=== PATIENT | male | born 1960 | race Caucasian/White ===

== ENCOUNTER → 2024-01-17 | Day surgery (SDC) | payer BC ==
[~2024-01-17] MED LIST: ACIPHEX20 MG PO; ASPIRIN81 MG PO; B-12 IM; BUPIVACAINE HCL 0.5% INJ 30 ML VIAL INJ ONE; CLARITIN10 MG PO; DEXAMETHASONE SOD PHOS INJ 4 MG/ML SDV ONE; DUPIXENT P300 MG/2 M SQ; EPINEPHRINE HCL 1:1000 1ML 1 MG/ML AMP ONE; FENTANYL CITRATE/PF 100MCG/2 ML INJ ONE; LEVOTHYROXINE75 MCG PO; LIDOCAINE 1% W/EPINEPHRINE 20 ML VIAL ONE; LIDOCAINE HCL 2% LOCAL INJ 5 ML SDV VIAL INJ ONE; LIPITOR20 MG PO; METOPROLOL SUCC50 MG PO; MIDAZOLAM HCL 2 MG/2 ML VIAL ONE; MONTELUKAST SOD10 MG PO; ONDANSETRON HCL INJ 2MG/ML 2ML 2 MG/ML VIAL ONE; PROBIOTIC PO; PROMETHAZINE HCL (IM) 25 MG/ML VIAL IM ONE; PROPOFOL IV EMULSION 10 MG/ML 20 ML VIAL ONE; ROPIVACAINE 0.5% 5 MG/ML 30 ML SDV ONE; SEVOFLURANE INHAL SOLN 250 ML PEN BTL ONE; VITAMIN D31 ML PO
[2024-01-17] MEDS: CEFAZOLIN SODIUM 2 GM ONE (09:11)
[2024-01-17] MEDS: LACTATED RINGER'S 1,000 ML ONE ×2 (09:12→12:10)
[2024-01-17 11:18] VITALS: TEMP 97.6
[2024-01-17] MEDS: MEPERIDINE HCL INJ 25 MG/ML VIAL ONE (11:35)
[2024-01-17] MEDS: KETOROLAC TROMETHAMINE 30 MG/ML VIAL ONE (11:49)
[2024-01-17] MEDS: METOCLOPRAMIDE HCL 10 MG/2ML VIAL ONE (12:05)
[2024-01-17] MEDS: PROMETHAZINE 25MG/ NS 50ML (IV) IV ONE (12:25)
[2024-01-17 12:45] VITALS: BP 144/77; PULSE 70; RESP 16; O2SAT 96
== END | disposition home or self-care (01) ==
LOC: OR 08:00
PROVIDERS: ATTEND Orthopaedic Surgery
DX: S83.232A Complex tear of medial meniscus, current injury, left knee, initial encounter (principal); M84.469A Pathological fracture, unspecified tibia and fibula, initial encounter for fracture; M84.453A Pathological fracture, unspecified femur, initial encounter for fracture; M67.52 Plica syndrome, left knee; M22.42 Chondromalacia patellae, left knee; I25.2 Old myocardial infarction; I10 Essential (primary) hypertension; E03.9 Hypothyroidism, unspecified; I25.10 Atherosclerotic heart disease of native coronary artery without angina pectoris; K21.9 Gastro-esophageal reflux disease without esophagitis; K58.9 Irritable bowel syndrome, unspecified; X58.XXXA Exposure to other specified factors, initial encounter; Z88.1 Allergy status to other antibiotic agents; Z79.1 Long term (current) use of non-steroidal anti-inflammatories (NSAID); Z79.82 Long term (current) use of aspirin; Z79.899 Other long term (current) drug therapy; Z95.5 Presence of coronary angioplasty implant and graft
CPT/HCPCS: 27599; 29881; 29999; 71046; 76000; C1713 ×2; J0171; J1100; J1885; J2001; J2175; J2250; J2405; J2550; J2704; J2765; J2795; J3010; J7121; 74420